=== PATIENT | male | born 1965 | race African-American/Black ===

== ENCOUNTER 2023-05-11 09:37 | Day surgery (SDC) | payer OTHER ==
[~2023-05-11] VITALS: Ht 172.7 cm; Wt 98.9 kg
[2023-05-11] MEDS ORDERED: MIDAZOLAM 2 MG/2 ML VIAL ONE (11:30)
[2023-05-11] MEDS ORDERED: LIDOCAINE 2% 100 MG/5 ML UJET TP ONE (11:31)
[2023-05-11] MEDS ORDERED: fentaNYL citrate 0.05 MG/ML VIAL ONE (11:31)
[2023-05-11] MEDS ORDERED: MIDAZOLAM 2 MG/2 ML VIAL IVP ONE (12:15)
[2023-05-11] MEDS ORDERED: fentaNYL citrate 0.05 MG/ML VIAL IVP ONE (12:15)
== END 2023-05-11 13:00 | disposition home or self-care (01) ==
LOC: MDS 09:37 → MMU 09:39 → MDS 13:00
PROVIDERS: ATTEND Internal Medicine Gastroenterology
DX: Z12.11 Encounter for screening for malignant neoplasm of colon (principal); D12.4 Benign neoplasm of descending colon; K57.30 Diverticulosis of large intestine without perforation or abscess without bleeding; I10 Essential (primary) hypertension; E78.00 Pure hypercholesterolemia, unspecified; K21.9 Gastro-esophageal reflux disease without esophagitis; Z79.899 Other long term (current) drug therapy
CPT/HCPCS: 45385; J2250; J3010